=== PATIENT | male | born 1960 | race Caucasian/White ===

== ENCOUNTER → 2016-09-05 | Outpatient (CLI) | payer OTHER ==
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
== END ==
LOC: M PAIN 09:20
PROVIDERS: ATTEND Anesthesiology
DX: Z09 Encounter for follow-up examination after completed treatment for conditions other than malignant neoplasm (principal); G89.29 Other chronic pain; M51.16 Intervertebral disc disorders with radiculopathy, lumbar region; M51.17 Intervertebral disc disorders with radiculopathy, lumbosacral region; M46.1 Sacroiliitis, not elsewhere classified; M96.1 Postlaminectomy syndrome, not elsewhere classified; I10 Essential (primary) hypertension; K21.9 Gastro-esophageal reflux disease without esophagitis; F41.9 Anxiety disorder, unspecified; Z88.8 Allergy status to other drugs, medicaments and biological substances; Z79.891 Long term (current) use of opiate analgesic; Z79.1 Long term (current) use of non-steroidal anti-inflammatories (NSAID); Z79.899 Other long term (current) drug therapy; Z87.891 Personal history of nicotine dependence; Z86.59 Personal history of other mental and behavioral disorders; Z87.828 Personal history of other (healed) physical injury and trauma

== ENCOUNTER → 2016-09-11 | Outpatient (CLI) | payer OTHER ==
[~2016-09-11] MED LIST: BUPIVACAINE HCL 0.25% 30 ML VIAL As Ordered ONE; ISOVUE-M 300 61% 15ML VIAL (Q9967) As Ordered ONE; LIDOCAINE 1% SDV INJ 30 ML VIAL As Ordered ONE; TRIAMCINOLONE ACETONIDE SUSP 40 MG/ML VIAL (J3301) As Ordered ONE; diazePAM 5 MG TAB As Ordered ONE; oxyCODONE 5MG TAB As Ordered ONE
--- NOTE | 2016-09-11 13:10 | REP ---
SI joint series: Five views. Partial. History: SI joint injection for pain. 17 seconds of fluoroscopy time is reported. Findings: A sequence of five last image hold fluoroscopically obtained spot radiographs of the SI joint on the right document needle position associated with injection procedure. Signed by Iron Fuller MD 09/11/2016 02:35 P
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
== END | disposition home or self-care (01) ==
LOC: M PAIN 09:40
PROVIDERS: ATTEND Anesthesiology
DX: G89.29 Other chronic pain (principal); M46.1 Sacroiliitis, not elsewhere classified; M53.88 Other specified dorsopathies, sacral and sacrococcygeal region; I10 Essential (primary) hypertension; K21.9 Gastro-esophageal reflux disease without esophagitis; F41.9 Anxiety disorder, unspecified; F17.200 Nicotine dependence, unspecified, uncomplicated; Z79.1 Long term (current) use of non-steroidal anti-inflammatories (NSAID); Z79.891 Long term (current) use of opiate analgesic; Z79.899 Other long term (current) drug therapy; Z88.8 Allergy status to other drugs, medicaments and biological substances; Z86.59 Personal history of other mental and behavioral disorders; Z87.898 Personal history of other specified conditions
CPT/HCPCS: G0260; J3301; Q9967

== ENCOUNTER → 2016-09-26 | Outpatient (CLI) | payer OTHER ==
--- NOTE | 2016-09-26 12:39 | REP ---
BILATERAL RENAL ULTRASOUND WITH RENAL ARTERY DOPPLER ULTRASOUND: 09/26/2016 COMPARISON: None. CLINICAL HISTORY: Hypertension. FINDINGS: RENAL ULTRASOUND: The right kidney measures 9.8 x 6.3 x 5.7 cm and the left is 9.9 x 5.9 x 6.8 cm. The cortical echogenicity is normal for both kidneys, less than that of the adjacent liver. There is some mild cortical thinning, right more than left. No cyst, solid mass, stone, or perinephric fluid. The bladder is not well filled. No gross evidence of mass, wall thickening, stone, or debris. The prostate has a few calcifications and abuts the bladder base measuring 4.5 x 2.8 x 4.3 cm. IMPRESSION: 1. Some bilateral mild cortical atrophy. Echogenicity is less than that of the adjacent liver. No stone, mass, cyst, or hydronephrosis. RENAL ARTERY ULTRASOUND: RIGHT KIDNEY: 9.8 cm long. Peak renal artery velocity 84.4 cm/s Peak aortic velocity 64.6 cm/s Renal aortic ratio 1.3. UP MID LP Resistive index 0.7 0.7 0.6 Acceleration time 0.03 sec 0.05 sec 0.04 sec LEFT KIDNEY: 9.9 cm long Peak artery velocity 72.2 cm/s Peak aortic velocity 64.6 cm/s Renal to aortic ratio 1.1 UP MID LP Resistive index 0.6 0.6 0.5 Acceleration time 0.03 sec 0.02 sec 0.03 sec IMPRESSION: 1. There is no direct or indirect evidence of renal artery stenosis by Doppler criteria. Incidental note of some aortic atherosclerotic plaque noted. Signed by Homar Lizarraga MD 09/26/2016 05:44 P
== END ==
LOC: M RAD 08:55
PROVIDERS: ATTEND Physician Assistant
DX: I10 Essential (primary) hypertension (principal)

== ENCOUNTER → 2017-01-10 | Outpatient (CLI) | payer OTHER ==
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
== END ==
LOC: M PAIN 09:40
PROVIDERS: ATTEND Nurse Practitioner Family
DX: G89.29 Other chronic pain (principal); M47.816 Spondylosis without myelopathy or radiculopathy, lumbar region; Z79.891 Long term (current) use of opiate analgesic; K21.9 Gastro-esophageal reflux disease without esophagitis; I10 Essential (primary) hypertension; F41.1 Generalized anxiety disorder; F17.210 Nicotine dependence, cigarettes, uncomplicated; F10.21 Alcohol dependence, in remission; Z79.1 Long term (current) use of non-steroidal anti-inflammatories (NSAID); Z79.899 Other long term (current) drug therapy; Z88.8 Allergy status to other drugs, medicaments and biological substances

== ENCOUNTER → 2017-01-17 | Outpatient (CLI) | payer OTHER ==
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
== END ==
LOC: M PAIN 14:20
PROVIDERS: ATTEND Anesthesiology
DX: G89.29 Other chronic pain (principal); M54.5 Low back pain; I10 Essential (primary) hypertension; K21.9 Gastro-esophageal reflux disease without esophagitis; F41.1 Generalized anxiety disorder; F10.21 Alcohol dependence, in remission; F17.210 Nicotine dependence, cigarettes, uncomplicated; Z88.8 Allergy status to other drugs, medicaments and biological substances; Z79.1 Long term (current) use of non-steroidal anti-inflammatories (NSAID); Z79.891 Long term (current) use of opiate analgesic; Z79.899 Other long term (current) drug therapy

== ENCOUNTER → 2017-04-24 | Outpatient (CLI) | payer OTHER ==
--- NOTE | 2017-04-24 11:48 | REP ---
MRI THORACIC SPINE WITHOUT CONTRAST: HISTORY: Worsening mid back pain. TECHNIQUE: Sagittal and axial T1 and T2-weighted scans are acquired in the usual fashion with and without fat saturation. Sequences include spin echo, turbo spin echo, and STIR imaging sequences. MRI FINDINGS: There is a small hemangioma in the T3 vertebral body. Otherwise, cortical and medullary bone signal intensity are normal. Vertebral body heights are preserved. Alignment is normal. There is mild degenerative disc narrowing and desiccation of at T7-8 and T8-9. Other disc spaces are maintained. There is a very small central disc protrusion at the T8-9 disc level indenting the ventral margin of the thecal sac. No other thoracic disc protrusion is seen. No neural foraminal lesion is seen. Thoracic cord is normal in coarse, caliber and signal intensity on T1 and T2-weighted scans. No cord compressive lesion is seen. IMPRESSION: Mild degenerative disc changes at T7-8 and T8-9 with a very small central disc protrusion at T8-9. No other significant abnormality. Signed by Iron Fuller MD 04/24/2017 03:50 P
== END ==
LOC: M RAD 09:51
PROVIDERS: ATTEND Anesthesiology
DX: M54.5 Low back pain (principal)

== ENCOUNTER → 2017-05-07 | Outpatient (CLI) | payer OTHER ==
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
== END ==
LOC: M PAIN 14:45
PROVIDERS: ATTEND Nurse Practitioner Family
DX: M96.1 Postlaminectomy syndrome, not elsewhere classified (principal); M47.816 Spondylosis without myelopathy or radiculopathy, lumbar region; I10 Essential (primary) hypertension; F41.1 Generalized anxiety disorder; F17.210 Nicotine dependence, cigarettes, uncomplicated; K21.9 Gastro-esophageal reflux disease without esophagitis; F10.21 Alcohol dependence, in remission; Z88.8 Allergy status to other drugs, medicaments and biological substances; Z79.891 Long term (current) use of opiate analgesic; Z79.899 Other long term (current) drug therapy

== ENCOUNTER → 2017-06-15 | Outpatient (CLI) | payer OTHER ==
--- NOTE | 2017-06-15 18:52 | REP ---
RIGHT LOWER EXTREMITY DUPLEX VEINS: HISTORY: Acute pain. Thrombus is present in the greater saphenous vein. There are no filling defects in the deep venous system. The deep venous system is patent. IMPRESSION:There is no deep venous thrombosis. Signed by Ramiro Michelle MD 06/15/2017 07:11 P
== END ==
LOC: M RAD 17:30
PROVIDERS: ATTEND Physician Assistant
DX: M79.604 Pain in right leg (principal)